=== PATIENT | female | born 2000 | race Asian ===

== ENCOUNTER 2019-02-04 16:53 | Emergency (ER) | payer OTHER ==
[2019-02-04 17:32] VITALS: BP 100/72
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
== END 2019-02-04 18:55 | disposition home or self-care (01) ==
LOC: UCEAST 16:53
DX: S09.90XA Unspecified injury of head, initial encounter (principal); Y04.2XXA Assault by strike against or bumped into by another person, initial encounter
CPT/HCPCS: 99211; G0463